=== PATIENT | male | born 1960 | race Caucasian/White ===

== ENCOUNTER 2022-01-24 16:59 | Emergency (ER) | payer OTHER ==
[2022-01-24] MEDS ORDERED: Diphtheria/Tetanus Toxoids,Adult (Td) 0.5 ML SDV IM ONE (17:05)
[2022-01-24] MEDS ORDERED: Lidocaine 2% 5 ML SDV INJECT ONE (17:35)
[2022-01-24] MEDS ORDERED: Cephalexin 250 MG Cap PO SCH (17:45)
== END 2022-01-24 19:30 | disposition home or self-care (01) ==
LOC: LL.ED 16:59
DX: S62.512A Displaced fracture of proximal phalanx of left thumb, initial encounter for closed fracture (principal); Z23 Encounter for immunization; Z91.013 Allergy to seafood; W20.8XXA Other cause of strike by thrown, projected or falling object, initial encounter; Y99.0 Civilian activity done for income or pay
CPT/HCPCS: 12001; 73140-FA; 90471; 90714; 99283; A9270-GY